=== PATIENT | female | born 1990 | race African-American/Black ===

== ENCOUNTER 2020-12-17 11:56 | Emergency (ER) | payer OTHER ==
[~2020-12-17] VITALS: Ht 154.9 cm; Wt 64.9 kg
[~2020-12-17 11:56] MED LIST: CITA10S PO; RXHYDACE PO; SILSUL1TC TOP
[2020-12-17] MEDS ORDERED: Norco 5-325 Ta1 EACH PO (13:49)
== END 2020-12-17 14:04 | disposition home or self-care (01) ==
LOC: ER 11:56
DX: S62.633A Displaced fracture of distal phalanx of left middle finger, initial encounter for closed fracture (principal); S62.635A Displaced fracture of distal phalanx of left ring finger, initial encounter for closed fracture; Z79.899 Other long term (current) drug therapy; W18.09XA Striking against other object with subsequent fall, initial encounter
CPT/HCPCS: 29130; 73130; 99283-25; A9270

== ENCOUNTER 2021-08-18 17:57 | Emergency (ER) | payer OTHER ==
[~2021-08-18] VITALS: Ht 154.9 cm; Wt 58.1 kg
[~2021-08-18 17:57] MED LIST changes: +Norco 5-325 Ta1 EACH PO
== END 2021-08-18 18:51 | disposition home or self-care (01) ==
LOC: ER 17:57
DX: S46.222D Laceration of muscle, fascia and tendon of other parts of biceps, left arm, subsequent encounter (principal); Z88.1 Allergy status to other antibiotic agents; Z88.8 Allergy status to other drugs, medicaments and biological substances; Z88.2 Allergy status to sulfonamides; F17.210 Nicotine dependence, cigarettes, uncomplicated
CPT/HCPCS: 99281